=== PATIENT | male | born 1980 | race African-American/Black ===

== ENCOUNTER 2020-02-19 20:12 | Emergency (ER) | payer MEDICARE, MEDICAID ==
[~2020-02-19] VITALS: Ht 182.9 cm; Wt 113.0 kg
[2020-02-19] MEDS ORDERED: AMLODIPINE 10MG TABLET PO ONE (22:15)
[2020-02-19 23:07] VITALS: BP 202/126
== END 2020-02-19 23:31 | disposition home or self-care (01) ==
LOC: ER 20:12
DX: I10 Essential (primary) hypertension (principal); J45.909 Unspecified asthma, uncomplicated; F79 Unspecified intellectual disabilities; H54.62 Unqualified visual loss, left eye, normal vision right eye
CPT/HCPCS: 93005; 99283

== ENCOUNTER 2024-12-15 11:02 | Emergency (ER) | payer MEDICARE, MEDICAID ==
[~2024-12-15] VITALS: Ht 182.9 cm; Wt 120.0 kg
[2024-12-15 11:07] VITALS: TEMP 36.9
[2024-12-15] MEDS: METHYLPREDNISOLONE SOD SUCC 125MG/2ML (ACT-O-VIAL) IV ONE (11:39)
[2024-12-15 12:25] LABS: BASOPHILS % 0.6 % (0.0-2.0); EOSINOPHILS % 4.5 % (0.0-5.0); HEMATOCRIT. 39.3 % (42.0-52.0); HEMOGLOBIN. 12.8 g/dL (14.0-18.0); LYMPHOCYTES % 23.3 % (20.0-50.0); MEAN PLATELET VOLUME 9.2 fl (7.4-10.4); MONOCYTES % 13.5 % (2.0-8.0); NEUTROPHILS % 58.1 % (40.0-76.0); PLATELET 320 x1000/uL (130-400); RED BLOOD CELL COUNT 4.66 mill/uL (4.7-6.1); RED CELL DISTRIBUTION WIDTH 15.6 % (11.6-14.6)
[2024-12-15 12:35] LABS: CREATININE 1.5 mg/dL (0.6-1.3)
[2024-12-15 12:36] LABS: TROPONIN I HIGH SENSITIVITY 13 ng/L (3.0-53); UREA NITROGEN BLOOD 11 mg/dL (9-23)
[2024-12-15] MEDS: CLONIDINE 0.1MG TABLET PO SCH ×2 (12:56→19:26)
[2024-12-15] MEDS: NITROGLYCERIN OINT 1GM/INCH UDPKT TD ONE (12:57)
[2024-12-15 14:10] VITALS: PULSE 72; RESP 24; O2SAT 98
[2024-12-15] MEDS: IPRATROPIUM BROMIDE (0.02%) 0.5MG/2.5ML NEB HHN SCH (14:10)
[2024-12-15] MEDS ORDERED: ALBUTEROL (0.083%) 2.5MG/3ML NEB ONE (14:16)
[2024-12-15] MEDS: ALBUTEROL (0.083%) 2.5MG/3ML NEB HHN SCH (14:17)
[2024-12-15 19:22] VITALS: BP 162/97; PULSE 90; RESP 27; O2SAT 95
== END 2024-12-15 19:43 | disposition home or self-care (01) ==
LOC: ER 11:02
DX: I16.0 Hypertensive urgency (principal); I11.9 Hypertensive heart disease without heart failure; J45.901 Unspecified asthma with (acute) exacerbation
CPT/HCPCS: 99291; 96374; 80048; 83880; 85025; 84484; 36415; 71045; 93005; 94644; J2919; 94640; 94664